=== PATIENT | male | born 1945 | race Caucasian/White ===

== ENCOUNTER 2023-05-26 11:04 | Inpatient (IN) | payer MEDICARE, SELFPAY ==
[2023-05-26] MEDS ORDERED: Acetaminophen 500 MG TAB ONE (11:36)
[2023-05-26 12:19] LABS: #Eosinphils 0.2 thou/uL (0.0-0.7); #Monocytes 0.6 thou/uL (0.11-0.59); #Neutrophils 6.5 thou/uL (1.40-6.50); %Basophils 0.2 % (0.0-1.0); %Eosinophils 2.5 % (0.0-10.0); %Lymphocytes 12.7 % (21.0-51.0); %Monocytes 6.7 % (0.0-10.0); %Neutrophils 77.7 % (42.0-75.0); Hematocrit 45.6 % (42.0-52.0); Hemoglobin 15.6 g/dL (14.0-18.0); Mean Corpuscular HGB CONC 34.2 g/dL (32.0-36.0); Mean Corpuscular Hemoglobin 31.1 pg (27.0-31.0); Mean Corpuscular Volume 90.8 fl (78.0-98.0); Mean Platelet Volume 11.7 fL (7.4-10.4); Platelet Count 115 10x3/uL (130-400); RBC Distribution Width 13.2 % (11.5-14.5); Red Blood Cell (RBC) Count 5.02 mill/uL (4.70-6.10); White Blood Cell (WBC) Count 8.4 10x3/uL (4.8-10.8)
[2023-05-26 12:40] LABS: Large Platelets SLIGHT (None Seen); Platelet Adequacy Comment Appears Adequate
[2023-05-26 12:53] LABS: Anion Gap 17 mmol/L (10-20); BUN (Urea Nitrogen) 24 mg/dL (8.4-25.7); Calc. Creatinine Clearance 0 mL/min (70-130); Calcium 9.8 mg/dL (7.8-10.44); Carbon Dioxide 26 mmol/L (23-31); Chloride 101 mmol/L (98-107); Estimated GFR 86; Glucose 94 mg/dL (83-110); Potassium 3.5 mmol/L (3.5-5.1); Sodium 140 mmol/L (136-145)
[2023-05-26 16:33] VITALS: BMI 17.2
[2023-05-26] MEDS ORDERED: TETANUS, DIPHTHERIA TOX,ADULT (TDVAX) 0.5 ML VIAL IM ONE (16:33)
[2023-05-26] MEDS ORDERED: Ipratropium/Albuterol 3 ML NEB NEB PRN (16:33)
[2023-05-26] MEDS ORDERED: hydrALAZINE 20 MG/ML VIAL SLOW IVP PRN (16:33)
[2023-05-26] MEDS ORDERED: Ondansetron ODT 4 MG TAB PO PRN (16:33)
[2023-05-26] MEDS ORDERED: traMADol HCl 50 MG TAB PO PRN (16:33)
[2023-05-26] MEDS ORDERED: FLU VACC QS2023(65UP)/MF59C/PF 60 MCG/0.5 ML SYRINGE IM ONE (17:00)
[2023-05-26] MEDS ORDERED: Acetaminophen 325 MG TAB ONE (17:05)
[2023-05-26] MEDS ORDERED: Boostrix 0.5 ML (Tdap) VIAL (>/=7 yrs of age) ONE (17:05)
[2023-05-26] MEDS: Sodium Chloride 0.9% 1,000 ML IV SCH (17:14)
[2023-05-26] MEDS: Acetaminophen 325 MG TAB PO SCH ×2 (17:14→23:49)
[2023-05-26] MEDS ORDERED: Morphine 2 MG/ML VIAL ONE (17:15)
[2023-05-26] MEDS: Morphine 2 MG/ML VIAL SLOW IVP PRN ×2 (17:18→21:31)
[2023-05-26 18:34] LABS: Bacteria/HPF None Seen HPF (None Seen); Bilirubin Negative (Negative); Blood, Urine Trace (Negative); CAUTI Indications for Culture Alt mental st,lethar; Clarity Clear (Clear); Glucose, Urine (Dipstick) Normal (Negative); Ketone, Urine 20 mg/dL (Negative); Leukocyte Negative Leu/uL (Negative); Nitrite Negative (Negative); Protein, Urine (Dipstick) 10 mg/dL (Neg-Trace); Specific Gravity, Urine 1.023 (1.002-1.036); Squamous Epithelial None Seen HPF (0-3); WBC/HPF 0-3 HPF (0-3); pH, Urine 5.5 (5.0-9.0)
[2023-05-26 18:35] LABS: Urine Culture Reflex No No
[2023-05-26] MEDS: Famotidine 20 MG TAB PO SCH (21:31)
[2023-05-27] MEDS: Acetaminophen 325 MG TAB PO SCH ×5 (00:16→22:49)
[2023-05-27] MEDS: Sodium Chloride 0.9% 1,000 ML IV SCH ×3 (03:22→16:54)
[2023-05-27] MEDS ORDERED: Senokot 8.6 MG TAB PO PRN (06:30)
[2023-05-27] MEDS ORDERED: Polyethylene Glycol 3350 17 GM Packet PO PRN (06:30)
[2023-05-27] MEDS: Famotidine 20 MG TAB PO SCH ×2 (07:37→22:49)
[2023-05-27] MEDS ORDERED: Tranexamic Acid 1,000 MG/10 ML VIAL ONE ×2 (09:47→10:50)
[2023-05-27] MEDS ORDERED: CEFAZOLIN 2 GM VIAL ONE (09:49)
[2023-05-27] MEDS ORDERED: Sodium Chloride 0.9% 100 ML ONE (09:50)
[2023-05-27] MEDS ORDERED: HYDROcodone/Acetaminophen 10/325 mg Tablet PO PRN (09:52)
[2023-05-27] MEDS ORDERED: Ondansetron PF 4 MG/2 ML Vial IVP PRN (09:52)
[2023-05-27] MEDS ORDERED: Communication Order-Pharmacy FS SCH (10:00)
[2023-05-27] MEDS ORDERED: PROPOFOL 20 ML ONE (10:09)
[2023-05-27] MEDS ORDERED: Ondansetron PF 4 MG/2 ML Vial ONE ×2 (10:10→10:15)
[2023-05-27] MEDS ORDERED: Lidocaine 1% PF 5 ML VIAL ONE ×2 (10:10→10:15)
[2023-05-27] MEDS ORDERED: Rocuronium Bromide 10 MG/ML (10ML VIAL) ONE ×2 (10:10→10:15)
[2023-05-27] MEDS ORDERED: PROPOFOL 200 MG/20 ML VIAL ONE (10:15)
[2023-05-27] MEDS ORDERED: SUGAMMADEX SODIUM 200 MG/2 ML VIAL ONE (11:09)
[2023-05-27] MEDS ORDERED: Promethazine HCl 25 MG/ML VIAL IM PRN (11:26)
[2023-05-27] MEDS ORDERED: Ondansetron HCl/PF 4 MG/2 ML Vial IVP PRN (11:26)
[2023-05-27] MEDS ORDERED: Ketorolac Tromethamine 0.5% Ophth Soln 3 ml Bottle R EYE SCH (17:00)
[2023-05-27] MEDS: CEFAZOLIN 2 GM in Sodium Chloride 0.9% 100 ML IVPB SCH (17:49)
[2023-05-27] MEDS: Aspirin 81 mg Enteric Coated Tablet PO SCH (22:49)
[2023-05-28] MEDS: CEFAZOLIN 2 GM in Sodium Chloride 0.9% 100 ML IVPB SCH (02:47)
[2023-05-28] MEDS: Sodium Chloride 0.9% 1,000 ML IV SCH ×3 (02:57→18:45)
[2023-05-28] MEDS: Acetaminophen 325 MG TAB PO SCH ×4 (05:32→23:16)
[2023-05-28 08:51] LABS: #Eosinphils 0.2 thou/uL (0.0-0.7); #Monocytes 0.6 thou/uL (0.11-0.59); #Neutrophils 4.4 thou/uL (1.40-6.50); %Basophils 0.5 % (0.0-1.0); %Eosinophils 3.2 % (0.0-10.0); %Lymphocytes 16.6 % (21.0-51.0); %Monocytes 9.5 % (0.0-10.0); %Neutrophils 69.9 % (42.0-75.0); Hemoglobin 12.8 g/dL (14.0-18.0); Mean Corpuscular HGB CONC 33.7 g/dL (32.0-36.0); Mean Corpuscular Hemoglobin 31.2 pg (27.0-31.0); Mean Corpuscular Volume 92.7 fl (78.0-98.0); Mean Platelet Volume 11.2 fL (7.4-10.4); Platelet Count 125 10x3/uL (130-400); RBC Distribution Width 13.1 % (11.5-14.5); White Blood Cell (WBC) Count 6.2 10x3/uL (4.8-10.8)
[2023-05-28 09:12] LABS: ALT (SGPT) 14 U/L (8-55); AST (SGOT) 21 U/L (5-34); Albumin 3.2 g/dL (3.4-4.8); Alkaline Phosphatase 68 U/L (40-110); Anion Gap 12 mmol/L (10-20); BUN (Urea Nitrogen) 17 mg/dL (8.4-25.7); Bilirubin, Total 0.7 mg/dL (0.2-1.2); Calc. Creatinine Clearance 52 mL/min (70-130); Calcium 8.7 mg/dL (7.8-10.44); Carbon Dioxide 30 mmol/L (23-31); Chloride 103 mmol/L (98-107); Estimated GFR 86; Globulin 2.3 g/dL (2.4-3.5); Glucose 111 mg/dL (83-110); Potassium 3.5 mmol/L (3.5-5.1); Protein, Total 5.5 g/dL (5.8-8.1); Sodium 141 mmol/L (136-145)
[2023-05-28] MEDS: KETOROLAC 0.5% OPHTH SOLN R EYE SCH ×5 (10:28→23:12)
[2023-05-28] MEDS: Aspirin 81 mg Enteric Coated Tablet PO SCH ×2 (10:36→23:14)
[2023-05-28] MEDS: Amlodipine 5 MG TAB PO SCH (10:36)
[2023-05-28] MEDS: Famotidine 20 MG TAB PO SCH ×2 (10:36→23:13)
[2023-05-29] MEDS: Sodium Chloride 0.9% 1,000 ML IV SCH (02:14)
[2023-05-29] MEDS: Acetaminophen 325 MG TAB PO SCH (04:49)
[2023-05-29 05:22] LABS: #Eosinphils 0.1 thou/uL (0.0-0.7); #Monocytes 0.6 thou/uL (0.11-0.59); #Neutrophils 5.1 thou/uL (1.40-6.50); %Basophils 0.4 % (0.0-1.0); %Lymphocytes 15.5 % (21.0-51.0); %Monocytes 8.7 % (0.0-10.0); %Neutrophils 73.1 % (42.0-75.0); Hematocrit 37.5 % (42.0-52.0); Hemoglobin 12.7 g/dL (14.0-18.0); Mean Corpuscular HGB CONC 33.9 g/dL (32.0-36.0); Mean Corpuscular Hemoglobin 30.7 pg (27.0-31.0); Mean Corpuscular Volume 90.6 fl (78.0-98.0); Platelet Count 134 10x3/uL (130-400); RBC Distribution Width 13.1 % (11.5-14.5); Red Blood Cell (RBC) Count 4.14 mill/uL (4.70-6.10)
[2023-05-29 05:59] LABS: Anion Gap 9 mmol/L (10-20); BUN (Urea Nitrogen) 14 mg/dL (8.4-25.7); Calc. Creatinine Clearance 58 mL/min (70-130); Calcium 8.8 mg/dL (7.8-10.44); Carbon Dioxide 31 mmol/L (23-31); Chloride 102 mmol/L (98-107); Estimated GFR 90; Glucose 115 mg/dL (83-110); Potassium 3.3 mmol/L (3.5-5.1); Sodium 139 mmol/L (136-145)
[2023-05-29] MEDS ORDERED: Tamsulosin HCl 0.4 MG CAP PO SCH (09:00)
[2023-05-29] MEDS: Famotidine 20 MG TAB PO SCH (09:52)
[2023-05-29] MEDS: Aspirin 81 mg Enteric Coated Tablet PO SCH (09:52)
[2023-05-29] MEDS ORDERED: Acetaminophen 325 MG TAB PO SCH (09:52)
[2023-05-29] MEDS: KETOROLAC 0.5% OPHTH SOLN R EYE SCH ×3 (09:52→16:42)
[2023-05-29] MEDS: Amlodipine 5 MG TAB PO SCH (09:52)
[2023-05-29] MEDS: Acetaminophen 500 MG TAB PO SCH ×2 (14:08→18:40)
[2023-05-29] MEDS: traMADol HCl 50 MG TAB PO SCH ×2 (14:09→19:28)
[2023-05-29 17:26] VITALS: BP 154/83; TEMP 98.1
== END 2023-05-29 20:09 | DRG 522 ==
LOC: ERS 11:04 → ERHOLD 15:12 → SURG A 19:57
PROVIDERS: ADMIT Surgery; ATTEND Surgery
PROC: 0SRS0JA Replacement of Left Hip Joint, Femoral Surface with Synthetic Substitute, Uncemented, Open Approach (ICD-10-PCS; principal; 2023-05-27)
DX: S72.012A Unspecified intracapsular fracture of left femur, initial encounter for closed fracture (principal); I69.354 Hemiplegia and hemiparesis following cerebral infarction affecting left non-dominant side; S72.032A Displaced midcervical fracture of left femur, initial encounter for closed fracture; I10 Essential (primary) hypertension; S09.90XA Unspecified injury of head, initial encounter; M25.572 Pain in left ankle and joints of left foot; M25.562 Pain in left knee; E78.5 Hyperlipidemia, unspecified; G89.11 Acute pain due to trauma; Z79.82 Long term (current) use of aspirin; Z79.899 Other long term (current) drug therapy
CPT/HCPCS: 36415; 36416; 70450; 71045; 72125; 80048; 80053; 81001; 85025; 90471; 90694; 90714; 90715; 93005; C1889; G0008; G0390; J2272; J2405; J2704; J3490; J7050